=== PATIENT | female | born 1985 | race African-American/Black ===

== ENCOUNTER 2023-04-30 16:29 | Emergency (ER) | payer OTHER ==
[~2023-04-30] VITALS: Ht 170.2 cm; Wt 118.6 kg
[~2023-04-30 16:29] MED LIST: [UNRECOGNIZED DRUG - REMARK]
[2023-04-30 17:04] VITALS: BP 193/98; PULSE 90; RESP 20; TEMP 97.7; O2SAT 96
[2023-04-30] MEDS ORDERED: CLONIDINE HYDROCHLORIDE 0.1 MG TAB PO ONE (17:45)
[2023-04-30] MEDS ORDERED: CLONIDINE HYDROCHLORIDE 0.1 MG TAB ONE ×2 (18:57→18:58)
[2023-04-30] MEDS ORDERED: AMLO5TAB PO (19:43)
[2023-04-30 19:49] VITALS: BP 163/95; PULSE 90; RESP 20; TEMP 97.7; O2SAT 96
== END 2023-04-30 19:48 | disposition home or self-care (01) ==
LOC: MED 16:29
DX: I10 Essential (primary) hypertension (principal); G89.29 Other chronic pain; M25.561 Pain in right knee; Z79.899 Other long term (current) drug therapy
CPT/HCPCS: 73562; 99283